=== PATIENT | female | born 1965 | race Caucasian/White ===

== ENCOUNTER 2019-06-21 05:44 | Inpatient (IN) ==
[2019-06-21] MEDS ORDERED: Isovue-370 500 ML BOTTLE IVP ONE (05:54)
[2019-06-21] MEDS ORDERED: *HR* HYDROmorphone (PF) 1 MG/ML SYRINGE IVP STA (05:55)
[2019-06-21 06:31] LABS: Basophils # 0.1 K/mcL (0.0-0.2); Basophils % 0.7 %; Eosinophils # 0.2 K/mcL (0.0-0.6); Eosinophils % 1.5 %; Hematocrit 41.7 % (35.3-44.9); Hemoglobin 13.8 g/dL (11.5-15.4); Immature Granulocytes % 1.1 % (0-4); Lymphocytes % 20.2 %; Mean Corpuscular HGB Conc 33.1 g/dL (31.6-35.5); Mean Corpuscular Hemoglobin 31.7 pg (28.0-33.3); Mean Corpuscular Volume 95.6 fL (83.0-100.0); Mean Platelet Volume 10.2 fL (9.4-12.4); Monocytes # 1.1 K/mcL (0.0-1.3); Monocytes % 7.4 %; Neutrophils # 10.1 K/mcL (1.6-8.9); Platelet Count 167 K/mcL (140-400); Red Blood Count 4.36 M/mcL (3.82-4.97); Red Cell Distribution Width 14.3 % (11.5-14.5); Segmented Neutrophils % 69.1 %; White Blood Count 14.6 K/mcL (4.3-11.1)
[2019-06-21 06:59] LABS: Alanine Aminotransferase 18 Units/L (7-52); Albumin 4.1 g/dL (3.5-5.7); Albumin/Globulin Ratio 1.6 (1.1-2.2); Alkaline Phosphatase 66 Units/L (34-104); Aspartate Amino Transferase 19 Units/L (13-39); BUN/Creatinine Ratio 18 (6-26); Bilirubin,Direct 0.1 mg/dL (0.0-0.2); Bilirubin,Indirect 0.2 mg/dL (0.0-1.2); Bilirubin,Total 0.3 mg/dL (0.3-1.0); Blood Urea Nitrogen 14 mg/dL (6-20); Calcium 8.8 mg/dL (8.6-10.3); Carbon Dioxide 24 mEq/L (23-29); Chloride 105 mEq/L (98-107); Globulin 2.6 g/dL (2.4-3.5); Glucose 96 mg/dL (70-105); Lipase 25 Units/L (11-82); Osmolality,Calculated 284 (280-300); Potassium 3.5 mEq/L (3.5-5.1); Sodium 137 mEq/L (136-145); Total Protein 6.7 g/dL (6.4-8.9); eGFR For African Americans > 60 (> 60); eGFR For Non-African Americans > 60 (> 60)
[2019-06-21] MEDS ORDERED: *HR* HYDROmorphone (PF) 1 MG/ML SYRINGE IVP ONE ×2 (07:16→09:10)
[2019-06-21 07:21] LABS: Bilirubin,Urine Negative (Negative); Blood,Urine Negative (Negative); Clarity,Urine Clear (Clear); Color,Urine Yellow (Yellow); Glucose,Urine (UA) Normal (Normal); Ketones,Urine Negative (Negative); Leukocyte Esterase,Urine Negative (Negative); Nitrite,Urine Negative (Negative); PH,Urine 6.5 pH Units (5.0-8.0); Protein,Urine Negative (Neg-Trace); Specific Gravity,Urine 1.007 (1.010-1.025); Urobilinogen,Urine Normal (Normal)
[2019-06-21 09:04] LABS: INR 0.9; Prothrombin Time 10.2 Seconds (9.4-12.1)
[2019-06-21 09:07] LABS: Activated Partial Thrombo Time 29.8 Seconds (26.0-36.0)
[2019-06-21] MEDS ORDERED: Ondansetron 4 MG/2 ML VIAL IVP PRN ×2 (10:15→16:59)
[2019-06-21] MEDS ORDERED: Acetaminophen 325 MG TABLET PO PRN ×2 (10:15→16:59)
[2019-06-21] MEDS ORDERED: Naloxone 0.4 MG/ML INJ IVP PRN ×2 (10:15→16:59)
[2019-06-21] MEDS ORDERED: *HR* OxyCODONE Immed Rel 5 MG TABLET PO PRN ×3 (10:43→16:59)
[2019-06-21] MEDS ORDERED: Nicotine 2 MG GUM BC PRN ×2 (10:50→16:59)
[2019-06-21] MEDS ORDERED: Nicotine 21 MG PATCH.TD24 TD SCH (11:00)
[2019-06-21] MEDS ORDERED: Lidocaine -MPF 4% 5 ML AMPUL ONE (11:42)
[2019-06-21] MEDS ORDERED: *HR* Midazolam HCl 2 MG/2 ML VIAL ONE (11:43)
[2019-06-21] MEDS ORDERED: *HR* FentaNYL (PF) 100 MCG/2 ML VIAL ONE ×2 (11:44→13:57)
[2019-06-21] MEDS ORDERED: *HR* Propofol 200 MG/20 ML VIAL IVP ONE (11:44)
[2019-06-21] MEDS ORDERED: *HR* Rocuronium Bromide 50 MG/5 ML VIAL ONE (11:46)
[2019-06-21] MEDS ORDERED: Ondansetron 4 MG/2 ML VIAL ONE (11:46)
[2019-06-21] MEDS ORDERED: Dexamethasone 4 MG/ML VIAL ONE (11:46)
[2019-06-21] MEDS ORDERED: Lidocaine -MPF 2% 2 ML VIAL ONE (11:46)
[2019-06-21] MEDS ORDERED: *HR* Promethazine 25 MG/ML VIAL IVP PRN (11:59)
[2019-06-21] MEDS ORDERED: *HR* Meperidine 25 MG/ML SYRINGE IVP PRN (11:59)
[2019-06-21] MEDS ORDERED: Acetaminophen IV 1,000 MG/100 ML INFUS..BTL IVPB ONE (11:59)
[2019-06-21] MEDS ORDERED: *HR* Midazolam HCl 2 MG/2 ML VIAL IVP PRN (11:59)
[2019-06-21] MEDS ORDERED: *HR* FentaNYL (PF) 100 MCG/2 ML VIAL IVP PRN (11:59)
[2019-06-21] MEDS ORDERED: Albuterol 2.5 MG/3 ML NEBULIZER IH PRN (11:59)
[2019-06-21] MEDS ORDERED: *HR* OxyCODONE Immed Rel 5 MG TABLET PO SCH (12:00)
[2019-06-21] MEDS ORDERED: Ringers Solution, Lactated 1,000 ML IVC SCH (12:00)
[2019-06-21] MEDS ORDERED: cefOXitin 2,000 MG in Water for inj. (sterile) 20 ML IVP ONE (13:18)
[2019-06-21] MEDS ORDERED: CefOXitin 2,000 MG VIAL ONE (13:45)
[2019-06-21] MEDS ORDERED: *HR* HYDROMORPHONE 2 MG/ML VIAL ONE (14:21)
[2019-06-21] MEDS ORDERED: *HR* Labetalol 20 MG/4 ML SYRINGE IVP ONE (14:39)
[2019-06-21] MEDS: *HR* HYDROmorphone (PF) 1 MG/ML SYRINGE IVP PRN ×4 (15:35→16:05)
[2019-06-21] MEDS ORDERED: Ipratropium/Albuterol Neb 3 ML IH ONE ×2 (15:36→15:47)
[2019-06-21] MEDS ORDERED: Ipratropium/Albuterol Neb 3 ML ONE (15:37)
[2019-06-21] MEDS: *HR* Labetalol 20 MG/4 ML SYRINGE IVP PRN ×2 (15:48→15:56)
[2019-06-21] MEDS ORDERED: Morphine PCA 30 MG/ 30 ML 30 ML PCA.VIAL IVC PRN (18:08)
[2019-06-21] MEDS: Ringers Solution, Lactated 1,000 ML IVC SCH ×2 (19:29→23:14)
[2019-06-21] MEDS ORDERED: Famotidine 20 MG TABLET PO SCH (21:00)
[2019-06-21] MEDS: Psyllium 1 PACKET POWD.PACK PO SCH (21:03)
[2019-06-21] MEDS: Famotidine 20 MG TABLET PO SCH (21:03)
[2019-06-21] MEDS ORDERED: Morphine Sulfate 2 MG/ML SYRINGE IVP ONE (21:21)
[2019-06-22] MEDS ORDERED: Morphine Sulfate 2 MG/ML SYRINGE IVP ONE (04:32)
[2019-06-22] MEDS ORDERED: Morphine PCA 30 MG/ 30 ML 30 ML PCA.VIAL IVC PRN (04:50)
[2019-06-22] MEDS ORDERED: *HR* OxyCODONE/APAP 5/325 TABLET PO ONE (05:30)
[2019-06-22] MEDS ORDERED: *HR* HYDROmorphone (PF) 1 MG/ML SYRINGE IVP ONE (08:40)
[2019-06-22] MEDS: Famotidine 20 MG TABLET PO SCH ×2 (08:56→20:07)
[2019-06-22] MEDS: Psyllium 1 PACKET POWD.PACK PO SCH ×3 (08:56→20:07)
[2019-06-22 08:59] LABS: Basophils # 0.1 K/mcL (0.0-0.2); Basophils % 0.4 %; Eosinophils # 0.1 K/mcL (0.0-0.6); Eosinophils % 0.7 %; Hematocrit 39.4 % (35.3-44.9); Hemoglobin 13.2 g/dL (11.5-15.4); Immature Granulocytes % 0.5 % (0-4); Lymphocytes # 2.4 K/mcL (0.6-4.6); Lymphocytes % 17.3 %; Mean Corpuscular HGB Conc 33.5 g/dL (31.6-35.5); Mean Corpuscular Hemoglobin 31.5 pg (28.0-33.3); Mean Platelet Volume 9.3 fL (9.4-12.4); Monocytes # 1.2 K/mcL (0.0-1.3); Monocytes % 8.9 %; Neutrophils # 9.9 K/mcL (1.6-8.9); Platelet Count 198 K/mcL (140-400); Red Blood Count 4.19 M/mcL (3.82-4.97); Red Cell Distribution Width 14.2 % (11.5-14.5); Segmented Neutrophils % 72.2 %; White Blood Count 13.7 K/mcL (4.3-11.1)
[2019-06-22 09:19] LABS: BUN/Creatinine Ratio 15 (6-26); Blood Urea Nitrogen 9 mg/dL (6-20); Calcium 8.9 mg/dL (8.6-10.3); Carbon Dioxide 24 mEq/L (23-29); Chloride 107 mEq/L (98-107); Glucose 99 mg/dL (70-105); Osmolality,Calculated 289 (280-300); Potassium 3.4 mEq/L (3.5-5.1); Sodium 140 mEq/L (136-145); eGFR For African Americans > 60 (> 60); eGFR For Non-African Americans > 60 (> 60)
[2019-06-22] MEDS: Ketorolac 15 MG/ML VIAL IVP SCH ×3 (10:46→23:16)
[2019-06-22] MEDS ORDERED: *HR* LORazepam 2 MG/ML VIAL IVP ONE (11:38)
[2019-06-22] MEDS: Ofloxacin OPTH Drops 5 ML BOTTLE LEFT EYE SCH ×8 (12:39→23:11)
[2019-06-22] MEDS ORDERED: 0.9 % Sodium Chloride 250 ML ONE ×3 (13:08→19:19)
[2019-06-22] MEDS: Morphine PCA 30 MG/ 30 ML 30 ML PCA.VIAL IVC PRN (18:11)
[2019-06-22] MEDS: Ringers Solution, Lactated 1,000 ML IVC SCH (20:05)
[2019-06-22] MEDS: ALPRAZolam 0.5 MG TABLET PO SCH (20:50)
[2019-06-22] MEDS: Gabapentin 300 MG CAPSULE PO SCH (20:50)
[2019-06-23] MEDS: Ofloxacin OPTH Drops 5 ML BOTTLE LEFT EYE SCH ×11 (01:24→21:22)
[2019-06-23] MEDS: Ketorolac 15 MG/ML VIAL IVP SCH ×3 (05:32→18:13)
[2019-06-23] MEDS: Ringers Solution, Lactated 1,000 ML IVC SCH ×3 (05:38→16:06)
[2019-06-23] MEDS: Morphine PCA 30 MG/ 30 ML 30 ML PCA.VIAL IVC PRN (09:03)
[2019-06-23] MEDS: ALPRAZolam 0.5 MG TABLET PO SCH ×3 (09:24→21:21)
[2019-06-23] MEDS: Gabapentin 300 MG CAPSULE PO SCH ×3 (09:24→21:21)
[2019-06-23] MEDS: Famotidine 20 MG TABLET PO SCH ×2 (09:24→21:21)
[2019-06-23] MEDS: Psyllium 1 PACKET POWD.PACK PO SCH ×3 (09:24→21:22)
[2019-06-23] MEDS: Acetaminophen IV 1,000 MG/100 ML INFUS..BTL IVPB SCH ×2 (12:07→18:12)
[2019-06-23] MEDS ORDERED: Albuterol 2.5 MG/3 ML NEBULIZER IH PRN (13:21)
[2019-06-23] MEDS ORDERED: NON-FORMULARY MEDICATION 1 EACH EACH (Gabapentin [Neurontin] 600 MG) PO SCH (15:00)
[2019-06-23] MEDS: valACYclovir 500 MG TABLET PO SCH ×2 (16:10→21:21)
[2019-06-23] MEDS ORDERED: OPTH RIGHT EYE SCH (21:00)
[2019-06-23] MEDS ORDERED: ATROPINE 1% RIGHT EYE SCH (21:00)
[2019-06-23] MEDS ORDERED: NON-FORMULARY MEDICATION 1 EACH EACH (Fluticasone Propionate [Flovent Hfa] 1 PUFF) IH SCH (21:00)
[2019-06-23] MEDS: Topiramate 100 MG TABLET PO SCH (21:21)
[2019-06-23] MEDS: OPTH BOTH EYES SCH (21:22)
[2019-06-23] MEDS: ATROPINE 1% BOTH EYES SCH (21:22)
[2019-06-23] MEDS: PrednisoLONE Acetate 1% Opth 5 ML BOTTLE RIGHT EYE SCH (21:22)
[2019-06-24] MEDS: Ketorolac 15 MG/ML VIAL IVP SCH ×4 (00:02→17:14)
[2019-06-24] MEDS: Acetaminophen IV 1,000 MG/100 ML INFUS..BTL IVPB SCH ×2 (00:02→06:04)
[2019-06-24] MEDS: tiZANidine 4 MG TABLET PO PRN ×2 (01:54→15:02)
[2019-06-24] MEDS: Ringers Solution, Lactated 1,000 ML IVC SCH (01:55)
[2019-06-24] MEDS: Ofloxacin OPTH Drops 5 ML BOTTLE LEFT EYE SCH ×11 (01:56→20:13)
[2019-06-24 08:07] LABS: Basophils # 0.1 K/mcL (0.0-0.2); Basophils % 0.6 %; Eosinophils # 0.2 K/mcL (0.0-0.6); Eosinophils % 3.1 %; Hematocrit 36.4 % (35.3-44.9); Hemoglobin 12.5 g/dL (11.5-15.4); Lymphocytes # 1.6 K/mcL (0.6-4.6); Lymphocytes % 20.1 %; Mean Corpuscular HGB Conc 34.3 g/dL (31.6-35.5); Mean Corpuscular Hemoglobin 31.6 pg (28.0-33.3); Mean Corpuscular Volume 92.2 fL (83.0-100.0); Mean Platelet Volume 9.3 fL (9.4-12.4); Monocytes # 0.8 K/mcL (0.0-1.3); Neutrophils # 5.1 K/mcL (1.6-8.9); Platelet Count 214 K/mcL (140-400); Red Blood Count 3.95 M/mcL (3.82-4.97); Segmented Neutrophils % 65.2 %; White Blood Count 7.8 K/mcL (4.3-11.1)
[2019-06-24 08:26] LABS: BUN/Creatinine Ratio 14 (6-26); Blood Urea Nitrogen 9 mg/dL (6-20); Calcium 8.4 mg/dL (8.6-10.3); Carbon Dioxide 22 mEq/L (23-29); Chloride 108 mEq/L (98-107); Glucose 93 mg/dL (70-105); Osmolality,Calculated 290 (280-300); Potassium 3.2 mEq/L (3.5-5.1); Sodium 141 mEq/L (136-145); eGFR For African Americans > 60 (> 60); eGFR For Non-African Americans > 60 (> 60)
[2019-06-24] MEDS: PrednisoLONE Acetate 1% Opth 5 ML BOTTLE RIGHT EYE SCH (09:25)
[2019-06-24] MEDS: OPTH BOTH EYES SCH ×2 (09:26→20:12)
[2019-06-24] MEDS: ATROPINE 1% BOTH EYES SCH ×2 (09:26→20:12)
[2019-06-24] MEDS: ALPRAZolam 0.5 MG TABLET PO SCH ×3 (09:28→20:11)
[2019-06-24] MEDS: Gabapentin 300 MG CAPSULE PO SCH ×3 (09:28→20:11)
[2019-06-24] MEDS: Diltiazem CD (24hr) 120 MG CAPSULE PO SCH (09:28)
[2019-06-24] MEDS: Famotidine 20 MG TABLET PO SCH ×2 (09:28→20:10)
[2019-06-24] MEDS: Psyllium 1 PACKET POWD.PACK PO SCH (09:28)
[2019-06-24] MEDS: Topiramate 100 MG TABLET PO SCH ×2 (09:29→20:11)
[2019-06-24] MEDS: valACYclovir 500 MG TABLET PO SCH ×3 (09:29→20:11)
[2019-06-24] MEDS: Loratadine 10 MG TABLET PO SCH (09:29)
[2019-06-24] MEDS: predniSONE 10 MG TABLET PO SCH (09:29)
[2019-06-24] MEDS: *HR* OxyCODONE/APAP 5/325 TABLET PO PRN (15:02)
[2019-06-25] MEDS: Ketorolac 15 MG/ML VIAL IVP SCH ×4 (00:20→17:23)
[2019-06-25] MEDS: Ofloxacin OPTH Drops 5 ML BOTTLE LEFT EYE SCH ×12 (00:24→20:46)
[2019-06-25 04:48] LABS: Basophils # 0.1 K/mcL (0.0-0.2); Basophils % 0.6 %; Eosinophils # 0.3 K/mcL (0.0-0.6); Eosinophils % 2.8 %; Hematocrit 35.5 % (35.3-44.9); Hemoglobin 11.6 g/dL (11.5-15.4); Lymphocytes # 2.5 K/mcL (0.6-4.6); Lymphocytes % 26.5 %; Mean Corpuscular HGB Conc 32.7 g/dL (31.6-35.5); Mean Corpuscular Volume 94.9 fL (83.0-100.0); Mean Platelet Volume 9.3 fL (9.4-12.4); Monocytes # 0.9 K/mcL (0.0-1.3); Monocytes % 9.4 %; Neutrophils # 5.6 K/mcL (1.6-8.9); Platelet Count 209 K/mcL (140-400); Red Blood Count 3.74 M/mcL (3.82-4.97); Segmented Neutrophils % 59.7 %; White Blood Count 9.4 K/mcL (4.3-11.1)
[2019-06-25 05:11] LABS: BUN/Creatinine Ratio 18 (6-26); Blood Urea Nitrogen 12 mg/dL (6-20); Calcium 8.6 mg/dL (8.6-10.3); Carbon Dioxide 20 mEq/L (23-29); Chloride 111 mEq/L (98-107); Glucose 87 mg/dL (70-105); Osmolality,Calculated 287 (280-300); Potassium 3.4 mEq/L (3.5-5.1); Sodium 139 mEq/L (136-145); eGFR For African Americans > 60 (> 60); eGFR For Non-African Americans > 60 (> 60)
[2019-06-25] MEDS: predniSONE 10 MG TABLET PO SCH (10:43)
[2019-06-25] MEDS: PrednisoLONE Acetate 1% Opth 5 ML BOTTLE RIGHT EYE SCH (10:44)
[2019-06-25] MEDS: ATROPINE 1% BOTH EYES SCH ×2 (10:44→20:47)
[2019-06-25] MEDS: OPTH BOTH EYES SCH ×2 (10:44→20:47)
[2019-06-25] MEDS: Famotidine 20 MG TABLET PO SCH ×2 (10:46→20:47)
[2019-06-25] MEDS: Loratadine 10 MG TABLET PO SCH (10:46)
[2019-06-25] MEDS: Topiramate 100 MG TABLET PO SCH ×2 (10:46→20:48)
[2019-06-25] MEDS: valACYclovir 500 MG TABLET PO SCH ×3 (10:47→20:48)
[2019-06-25] MEDS: Gabapentin 300 MG CAPSULE PO SCH ×3 (10:47→20:47)
[2019-06-25] MEDS: Diltiazem CD (24hr) 120 MG CAPSULE PO SCH (10:47)
[2019-06-25] MEDS: ALPRAZolam 0.5 MG TABLET PO SCH ×3 (10:47→20:48)
[2019-06-25] MEDS: *HR* OxyCODONE/APAP 5/325 TABLET PO PRN (10:53)
[2019-06-25] MEDS: tiZANidine 4 MG TABLET PO PRN (21:04)
[2019-06-26] MEDS: Ofloxacin OPTH Drops 5 ML BOTTLE LEFT EYE SCH ×9 (00:29→14:16)
[2019-06-26] MEDS: Ketorolac 15 MG/ML VIAL IVP SCH ×3 (00:30→11:36)
[2019-06-26] MEDS: *HR* OxyCODONE/APAP 5/325 TABLET PO PRN ×2 (03:41→14:16)
[2019-06-26 07:19] LABS: Basophils # 0.1 K/mcL (0.0-0.2); Basophils % 0.6 %; Eosinophils # 0.4 K/mcL (0.0-0.6); Eosinophils % 2.6 %; Hematocrit 37.6 % (35.3-44.9); Hemoglobin 12.2 g/dL (11.5-15.4); Lymphocytes % 22.1 %; Mean Corpuscular HGB Conc 32.4 g/dL (31.6-35.5); Mean Corpuscular Hemoglobin 31.1 pg (28.0-33.3); Mean Corpuscular Volume 95.9 fL (83.0-100.0); Mean Platelet Volume 9.7 fL (9.4-12.4); Monocytes # 1.1 K/mcL (0.0-1.3); Monocytes % 8.4 %; Neutrophils # 8.8 K/mcL (1.6-8.9); Platelet Count 215 K/mcL (140-400); Red Blood Count 3.92 M/mcL (3.82-4.97); Red Cell Distribution Width 14.3 % (11.5-14.5); Segmented Neutrophils % 65.3 %; White Blood Count 13.4 K/mcL (4.3-11.1)
[2019-06-26 07:21] LABS: BUN/Creatinine Ratio 21 (6-26); Blood Urea Nitrogen 17 mg/dL (6-20); Carbon Dioxide 22 mEq/L (23-29); Chloride 107 mEq/L (98-107); Glucose 82 mg/dL (70-105); Osmolality,Calculated 289 (280-300); Potassium 3.8 mEq/L (3.5-5.1); Sodium 139 mEq/L (136-145); eGFR For African Americans > 60 (> 60); eGFR For Non-African Americans > 60 (> 60)
[2019-06-26] MEDS: ALPRAZolam 0.5 MG TABLET PO SCH ×2 (08:43→14:16)
[2019-06-26] MEDS: Famotidine 20 MG TABLET PO SCH (08:44)
[2019-06-26] MEDS: Loratadine 10 MG TABLET PO SCH (08:44)
[2019-06-26] MEDS: valACYclovir 500 MG TABLET PO SCH ×2 (08:45→14:16)
[2019-06-26] MEDS: predniSONE 10 MG TABLET PO SCH (08:45)
[2019-06-26] MEDS: Gabapentin 300 MG CAPSULE PO SCH ×2 (08:45→14:16)
[2019-06-26] MEDS: Topiramate 100 MG TABLET PO SCH (08:45)
[2019-06-26] MEDS: Diltiazem CD (24hr) 120 MG CAPSULE PO SCH (08:45)
[2019-06-26] MEDS: OPTH BOTH EYES SCH (09:06)
[2019-06-26] MEDS: ATROPINE 1% BOTH EYES SCH (09:06)
[2019-06-26] MEDS: PrednisoLONE Acetate 1% Opth 5 ML BOTTLE RIGHT EYE SCH (09:07)
[2019-06-26 11:56] VITALS: BP 136/88
[2019-06-26 12:26] LABS: Bilirubin,Urine Negative (Negative); Blood,Urine Negative (Negative); Clarity,Urine Clear (Clear); Color,Urine Yellow (Yellow); Glucose,Urine (UA) Normal (Normal); Ketones,Urine Negative (Negative); Leukocyte Esterase,Urine Negative (Negative); Nitrite,Urine Negative (Negative); Protein,Urine Negative (Neg-Trace); Specific Gravity,Urine 1.009 (1.010-1.025); Urobilinogen,Urine Normal (Normal)
== END 2019-06-26 14:56 | disposition home health service (06) | DRG 331 ==
LOC: EMEROOARM 05:44 → SUATTDRO 10:14 → 3ANU 10:14 → INTOOBSV 10:14 → 3ANU 11:24 → SUATTDRO 06-22 15:57
PROVIDERS: ADMIT Internal Medicine; ATTEND Family Medicine